=== PATIENT | female | born 1970 | race Two or more races ===

== ENCOUNTER 2024-06-08 07:53 | Outpatient (CLI) | payer OTHER ==
[2024-06-08 08:40] LABS: PH,URINE 7.5 (5.0-8.0); URINE APPEARANCE Clear; URINE BILIRRUBIN Negative (NEGATIVE); URINE BLOOD Negative; URINE COLOR Yellow; URINE GLUCOSE Negative (NEGATIVE); URINE KETONE Negative (NEGATIVE); URINE LEUKOCYTE Negative; URINE NITRATE Negative; URINE PROTEIN Negative (NEGATIVE); URINE UROBILINOGEN 0.2 E.U./dl
[2024-06-08 08:43] LABS: URINE BACTERIA 73.4 uL (0.0-1933); URINE EPITHELIAL CELLS 8.2 uL (0.0-38.8); URINE RBC 16.9 uL (0.0-20.8); URINE WBC 3.4 uL (0.0-23.2)
[2024-06-08 08:55] LABS: HEMOGLOBIN 12.7 g/dL (12.0-15.00); MEAN CELL VOLUME 88.4 fL (80.00-100.00); MEAN CORPUSCULAR HEMOGLOBIN 29.6 pg (27.00-32.0); MEAN CORPUSCULAR HGB CONC 33.5 g/dl (32.0-36.0); PLATELET COUNT 282 K/uL (150-450); RED BLOOD COUNT 4.31 M/uL (4.00-6.00); RED CELL DISTRIBUTION WIDTH 13.2 % (11.5-14.5)
[2024-06-08 09:15] LABS: URINE CAST 0.44 uL (0.0-1.40)
[2024-06-08 09:37] LABS: ALBUMIN 4.2 gm/dL (3.4-5.0); ALKALINE PHOSPHATASE 121 U/L (50-136); ALT/SGPT 20 U/L (12-78); AMYLASE 75 U/L (25-115); ANION GAP 8 (10.0-20.0); AST/SGOT 14 U/L (15-37); BILIRUBIN TOTAL 0.34 mg/dL (0.3-1.2); BILIRUBIN,CONJUGATED < 0.10 mg/dL (0.0-0.2); BILIRUBIN,UNCONJUGATED 0.24 mg/dL (0.0-0.6); BLOOD UREA NITROGEN 17 mg/dL (7-18); BUN CREA RATIO 20 (7.0-25.0); CALCIUM 9.6 mg/dL (8.5-10.1); CARBON DIOXIDE 33 mEq/L (21-32); CHLORIDE 105 mmol/L (98-107); CHOL HDL RATIO 4.1 (0-5.0); CHOLESTEROL 206 mg/dL (0-200); CREATININE SERUM 0.83 mg/dL (0.55-1.02); GFR 71.11; GLOBULINA 3.7 G/DL (2.4-3.5); GLUCOSE FASTING 87 mg/dL (65-100); HDL 50 mg/dl (40-60); LDL 130 mg/dl (0-130); LIPASE 81 U/L (13-75); OSMOLALITY SERUM 282 MOSM/KG (275-295); POTASSIUM 4.58 mEq/L (3.5-5.1); SODIUM 141 mmol/L (136-145); T4 FREE 1.06 NG/ML (0.76-1.46); TOTAL PROTEIN 7.9 gm/dL (6.4-8.2); TRIGLYCERIDES 129 mg/dL (0-150); TSH 0.767 uIU/mL (0.358-3.74); VLDL 25 (0-39)
[2024-06-08 09:43] LABS: URIC ACID 4.7 mg/dL (2.5-7.5)
[2024-06-08 09:51] LABS: MYCOPLASMA PNEUMONIAE IGM NON REACTIVE (NO REACTIVE)
[2024-06-08 11:42] LABS: ERYTHROCYTE SEDIMENTATION RATE 29 mm/hr
[2024-06-10 10:07] LABS: FOLIC ACID 10.63 ng/ml (4.78-20); VITAMIN D3 25 HYDROXY 25.73 ng/ml (30-120)
[2024-06-11 07:06] LABS: hav igm Negative (Negative); hcv Non Reactive (Non Reactive); hep b c Negative (Negative); hep b s ag Negative (Negative)
[2024-06-11 09:10] LABS: HOMOCYSTEINE 17.2 umol/L (0.0-14.5)
== END 2024-06-08 08:00 | disposition home or self-care (01) ==
LOC: LAB 07:53
PROVIDERS: ATTEND General Practice
DX: E55.9 Vitamin D deficiency, unspecified (principal); E53.9 Vitamin B deficiency, unspecified; R73.9 Hyperglycemia, unspecified; R50.9 Fever, unspecified; D52.0 Dietary folate deficiency anemia; D50.8 Other iron deficiency anemias; E78.2 Mixed hyperlipidemia; M10.071 Idiopathic gout, right ankle and foot; Z12.11 Encounter for screening for malignant neoplasm of colon; N39.0 Urinary tract infection, site not specified; E03.8 Other specified hypothyroidism; M06.9 Rheumatoid arthritis, unspecified; B18.2 Chronic viral hepatitis C; A64 Unspecified sexually transmitted disease; R73.09 Other abnormal glucose; E72.11 Homocystinuria; R10.9 Unspecified abdominal pain

== ENCOUNTER 2024-06-10 07:49 | Outpatient (CLI) | payer OTHER ==
[2024-06-10 09:01] LABS: ob POSITIVE (NEGATIVE)
== END 2024-06-10 07:52 | disposition home or self-care (01) ==
LOC: LAB 07:49
PROVIDERS: ATTEND General Practice
DX: E55.9 Vitamin D deficiency, unspecified (principal); E11.9 Type 2 diabetes mellitus without complications; R73.9 Hyperglycemia, unspecified; E53.9 Vitamin B deficiency, unspecified; R50.9 Fever, unspecified; D52.0 Dietary folate deficiency anemia; D50.8 Other iron deficiency anemias; E78.2 Mixed hyperlipidemia; M10.071 Idiopathic gout, right ankle and foot; Z12.11 Encounter for screening for malignant neoplasm of colon; N39.0 Urinary tract infection, site not specified; E03.8 Other specified hypothyroidism; M06.9 Rheumatoid arthritis, unspecified; B18.2 Chronic viral hepatitis C; A64 Unspecified sexually transmitted disease; R73.09 Other abnormal glucose; E72.11 Homocystinuria; R10.9 Unspecified abdominal pain

== ENCOUNTER 2024-06-19 07:10 | Outpatient (CLI) | payer OTHER | END 2024-06-19 07:20 | disposition home or self-care (01) | LOC: TOM 07:10 | PROVIDERS: ATTEND General Practice | DX: R10.9 Unspecified abdominal pain (principal) ==

== ENCOUNTER 2024-07-11 21:22 | Emergency (ER) | payer OTHER ==
[~2024-07-11] VITALS: Ht 152.4 cm; Wt 81.6 kg
[2024-07-11] MEDS ORDERED: CEFTRIAXONE SODIUM 1,000 MG VIAL IV ONE (23:15)
[2024-07-11] MEDS ORDERED: TAMSULOSIN HCL 0.4 MG CAP PO ONE ×2 (23:15→23:34)
[2024-07-11] MEDS ORDERED: TRAMADOL HCL 50 MG TABLET PO ONE (23:15)
[2024-07-11] MEDS ORDERED: CEFTRIAXONE SODIUM 1,000 MG VIAL ONE (23:34)
[2024-07-12 00:14] LABS: HEMATOCRIT 34.7 % (36.0-45.00); MEAN CELL VOLUME 86.5 fL (80.00-100.00); MEAN CORPUSCULAR HGB CONC 33.2 g/dl (32.0-36.0); PLATELET COUNT 245 K/uL (150-450); RED BLOOD COUNT 4.01 M/uL (4.00-6.00); RED CELL DISTRIBUTION WIDTH 13.5 % (11.5-14.5)
[2024-07-12 00:37] LABS: HEMOGLOBIN 11.5 g/dL (12.0-15.00); MEAN CORPUSCULAR HEMOGLOBIN 28.6 pg (27.00-32.0)
[2024-07-12 00:48] LABS: ALBUMIN 3.7 gm/dL (3.4-5.0); BILIRUBIN TOTAL 0.19 mg/dL (0.3-1.2); CALCIUM 8.5 mg/dL (8.5-10.1); CREATININE SERUM 1.03 mg/dL (0.55-1.02); GFR 55.43; GLOBULINA 3.5 G/DL (2.4-3.5); POTASSIUM 3.77 mEq/L (3.5-5.1); TOTAL PROTEIN 7.2 gm/dL (6.4-8.2)
[2024-07-12 00:52] LABS: INR 1.05; PARTIAL THROMBOPLASTIN TIME 28.3 SECONDS (22.0-34.0); PROTHROMBIN TIME 11.4 SECONDS (9.0-11.5)
[2024-07-12 01:02] LABS: PH,URINE 5.5 (5.0-8.0); URINE APPEARANCE Cloudy; URINE BILIRRUBIN Negative (NEGATIVE); URINE BLOOD Large; URINE COLOR Yellow; URINE GLUCOSE Negative (NEGATIVE); URINE KETONE Trace (NEGATIVE); URINE LEUKOCYTE Trace; URINE NITRATE Negative; URINE PROTEIN 30 (NEGATIVE)
[2024-07-12 01:06] LABS: URINE BACTERIA 68.5 uL (0.0-1933); URINE EPITHELIAL CELLS 10.1 uL (0.0-38.8); URINE RBC 183.6 uL (0.0-20.8); URINE WBC 17.7 uL (0.0-23.2)
[2024-07-12 01:11] LABS: URINE CAST 0.73 uL (0.0-1.40)
== END 2024-07-12 02:36 | disposition home or self-care (01) ==
LOC: ER 21:58
PROVIDERS: General Practice
DX: N20.1 Calculus of ureter (principal); R10.31 Right lower quadrant pain; N39.0 Urinary tract infection, site not specified; Z88.6 Allergy status to analgesic agent

== ENCOUNTER 2024-11-06 11:58 | Outpatient (CLI) | payer OTHER ==
[2024-11-06 13:23] LABS: BASO % 0.5 % (0.1-1.2); EOS # 0.11 (0.04-0.54); EOS % 1.8 % (0.7-7.0); LYMPH # 1.89 (1.18-3.74); LYMPH % 30.1 % (19.3-53.1); MEAN PLATELET VOLUME 10.90 fl (9.4-12.4); MONO # 0.28 (0.24-0.82); MONO % 4.5 % (4.7-12.5); NEUT # 3.94 (1.56-6.13); NEUT % 62.8 % (34.0-71.1); RED CELL DISTRIBUTION WIDTH 12.6 % (11.6-14.4)
[2024-11-06 13:27] LABS: URINE APPEARANCE Cloudy; URINE BILIRRUBIN Negative (NEGATIVE); URINE BLOOD Negative; URINE COLOR Yellow; URINE GLUCOSE Negative (NEGATIVE); URINE KETONE Negative (NEGATIVE); URINE LEUKOCYTE Trace; URINE NITRATE Negative; URINE PROTEIN Negative (NEGATIVE); URINE UROBILINOGEN 0.2 E.U./dl
[2024-11-06 13:31] LABS: URINE BACTERIA 1396.7 uL (0.0-1933); URINE EPITHELIAL CELLS 166.5 uL (0.0-38.8); URINE RBC 19.5 uL (0.0-20.8); URINE WBC 24.9 uL (0.0-23.2)
[2024-11-06 13:42] LABS: COVID-19 AG NEGATIVE (NEGATIVE)
[2024-11-06 13:52] LABS: URINE CAST 0.43 uL (0.0-1.40); URINE MUCUS MODERATE
[2024-11-06 14:06] LABS: MYCOPLASMA PNEUMONIAE IGM NON REACTIVE (NO REACTIVE)
[2024-11-06 14:18] LABS: ALT/SGPT 22.0 U/L (12-78); AST/SGOT 19.0 U/L (15-37); BILIRUBIN TOTAL 0.5 mg/dL (0.3-1.2); BUN CREA RATIO 23.0 (7.0-25.0); CHOL HDL RATIO 4.0 (0-5.0); CREATININE SERUM 0.7 mg/dL (0.55-1.02); GFR 86.56; GLOBULINA 3.5 G/DL (2.4-3.5); GLUCOSE FASTING 81.0 mg/dL (65-100); HDL 48.0 mg/dl (40-60); LDL 126.0 mg/dl (0-130); OSMOLALITY SERUM 285.0 MOSM/KG (275-295); TSH 0.574 uIU/mL (0.358-3.74); VLDL 20.0 (0-39)
== END 2024-11-06 11:59 | disposition home or self-care (01) ==
LOC: LAB 11:58
DX: J11.1 Influenza due to unidentified influenza virus with other respiratory manifestations (principal); Z20.822 Contact with and (suspected) exposure to COVID-19; R05.1 Acute cough; E53.9 Vitamin B deficiency, unspecified; E78.2 Mixed hyperlipidemia; E03.8 Other specified hypothyroidism; N39.0 Urinary tract infection, site not specified; E11.69 Type 2 diabetes mellitus with other specified complication; R50.9 Fever, unspecified; R79.9 Abnormal finding of blood chemistry, unspecified